=== PATIENT | female | born 1955 | race Caucasian/White ===

== ENCOUNTER 2017-11-16 07:19 | Observation (INO) ==
[2017-11-16] MEDS ORDERED: Sod Chloride 0.9% Inj 1,000 ML IV.CONT SCH ×2 (07:45→09:45)
--- NOTE | 2017-11-16 07:47 | ED ---
[facility] General Chief Complaint: Dizziness Stated Complaint: Dizzy since 5am Time Seen by Provider: 11/16/17 07:33 Source: patient History of Present Illness [facility] Narrative: Patient is a 62-year-old female with no past medical history, presents to the ER for evaluation of chest pain and dizzyness. Patient reports that since yesterday, she has been having chest pain. Patient reports that her chest pain feels like tightness to her chest. Patient reports that she has never had chest pain in the past. Patient reports that nothing makes his chest pain better or worse, denies any shortness of breath, denies any nausea or vomiting or chest pain. Patient reports that pain has been constant since yesterday. Patient reports that this morning at 5 AM, she got up to use the bathroom. Patient reports that she began to have pain to the right side of her neck and put some Orika gel on it and went back to bed. Reports that she went to lay on her left side and felt dizzy, patient then laid on her right side and had resolution of symptoms. Patient reports that every time she laid in the left side, she would feel sick. Patient got to the point where she had to get up and use the bathroom to make her feel better. Patient reports that the dizziness resolves when she sits up, reports that it is worse when she lays down and lays on her left side. Patient with no history of vertigo in the past. Reports that her right ear has been bothering her since yesterday. Patient with no fever or chills, reports nausea with vomiting with her dizziness. Patient with no other complaints.. complaint: dizziness Onset (ago): hour(s) Time: 05:00 Timing: sudden onset Description: "room spinning" History of similar episodes: No History of trauma: No Severity: moderate Relieving factors: remaining still Exacerbating factors: movement Associated symptoms: chest pain, nausea and vomiting Related Data Home Medications Medication Instructions Recorded Confirmed No Known Home Medications 11/16/17 11/16/17 Allergies Allergy/AdvReac Type Severity Reaction Status Date / Time Antihistamines - Piperazine Allergy Itching, Verified 11/16/17 08:05 Generalized Review of Systems ROS Unobtainable All other systems reviewed negative except as stated in [facility] Medical History Medical History History of hysterectomy (Acute) Pulmonary embolism (Acute) Social History Social History Substance History: No History of Abuse Second Hand Smoke Exposure: No Smoking Status: Former smoker Tobacco Type: Cigarettes How Often Do You Have a Drink Containing Alcohol: 4 or more times a week Recent Travel in [facility] within the Last 8 Weeks: No Recent Out of Country Travel within the Last 8 Weeks: No Immunization History Tetanus Immunization: >5 Years Hx Influenza Vaccine This Season: No Exam Narrative Exam Narrative: GENERAL: Mild distress SKIN: Focused skin assessment warm/dry. HEAD: Atraumatic. Normocephalic. EYES: Pupils equal and round. No scleral icterus. No injection or drainage. Patient with horizontial nystagumus ENT: No nasal bleeding or discharge. Mucous membranes pink and moist. NECK: Trachea midline. No JVD. CARDIOVASCULAR: Regular rate and rhythm. No murmur appreciated. RESPIRATORY: No accessory muscle use. Clear to auscultation. Breath sounds equal bilaterally. GASTROINTESTINAL: Abdomen soft, non-tender, nondistended. Hepatic and splenic margins not palpable. MUSCULOSKELETAL: No obvious deformities. No clubbing. No cyanosis. No edema. NEUROLOGICAL: Awake and alert. No obvious cranial nerve deficits. Motor grossly within normal limits. Normal speech. CN 2- 12 grossly intact with no neurological deficits PSYCHIATRIC: Appropriate mood and affect; insight and judgment normal. Course Initial Documented Vital Signs Temperature 97.7 F 11/16/17 07:22 Pulse Rate 62 11/16/17 07:22 Respiratory Rate 16 11/16/17 07:22 Blood Pressure 148/73 H 11/16/17 07:22 Pulse Oximetry 99 11/16/17 07:22 Last Documented Vital Signs Temperature 97.7 F 11/16/17 07:22 Pulse Rate 66 11/16/17 09:36 Respiratory Rate 16 11/16/17 09:36 Blood Pressure 129/74 11/16/17 09:36 Pulse Oximetry 97 11/16/17 09:36 Medical Decision Making DENIA Attestation DENIA supervised visit: No MDM Narrative Medical decision making narrative: During the course of the patients emergency department visit, the patients history, examination, and differential diagnosis were reviewed with the patient. The patient was placed on a toilet attendant with oximetry and frequent blood pressure monitoring. The patient had an IV access obtained and blood work sent for analysis. The patient was initially provided IVF as well as antivert. Patient's EKG shows sinus bradycardia with ST segment depressions with T-wave inversions concerning for ischemia, patient does not have any prior EKGs to compare, cardiac enzymes were ordered, given her abnormal EKG, patient will need to be admitted to the hospital for chest pain Patient feeling better, plan to admit for chest pain obs patient did have past ekg at [facility] - will request prior EKG to compare to todays's ekg. she did take a full dose asa today case reviewed with Dr. Costa who accepts pt to chest pain unit Differential Diagnosis Differential Diagnosis: Vertigo versus VBI versus ACS, arrhythmia, electrolyte abnormality, bronchitis, pneumonia, PE, pneumothorax Medical Records Medical records reviewed: Yes I reviewed the patient's medical records. Lab Data Lab results reviewed: Yes I reviewed the patient's lab results. Result diagrams: 11/16/17 07:50 11/16/17 07:50 Lab Results 11/16/17 11/16/17 11/16/17 Range/Units 07:50 07:50 07:50 CBC w Diff Auto diff final WBC 7.7 (4.0-11.0) th/mm3 RBC 5.05 (4.00-5.30) mil/mm3 Hgb 15.3 (11.6-15.3) gm/dL Hct 45.1 (35.0-46.0) % MCV 89.3 (80.0-100.0) fL MCH 30.3 (27.0-34.0) pg MCHC 34.0 (32.0-36.0) % RDW 13.2 (11.6-17.2) % Plt Count 259 (150-450) th/mm3 MPV 8.7 (7.0-11.0) fL Neut % (Auto) 76.6 H (16.0-70.0) % Lymph % (Auto) 16.6 (9.0-44.0) % [place] % (Auto) 4.3 (0.0-8.0) % Eos % (Auto) 1.5 (0.0-4.0) % Baso % (Auto) 1.0 (0.0-2.0) % Neut # (Auto) 5.9 (1.8-7.7) th/mm3 Lymph # (Auto) 1.3 (1.0-4.8) th/mm3 [place] # (Auto) 0.3 (0.0-0.9) th/mm3 Eos # (Auto) 0.1 (0.0-0.4) th/mm3 Baso # (Auto) 0.1 (0.0-0.2) th/mm3 WBC Differential . PT 10.0 (9.8-11.6) sec INR 1.0 Ratio Sodium 141 (136-145) meq/L Potassium 4.0 (3.5-5.1) meq/L Chloride 109 H (98-107) meq/L Carbon Dioxide 22.9 (21.0-32.0) meq/L Anion Gap 9 (5-15) meq/L BUN 10 (7-18) mg/dL Creatinine 0.75 (0.50-1.00) mg/dL Estimated GFR 78 L (>89) mL/min Random Glucose 117 H (74-106) mg/dL Calcium 9.3 (8.5-10.1) mg/dL Total Bilirubin 0.4 (0.2-1.0) mg/dL AST 23 (15-37) U/L ALT 50 (10-53) U/L Alkaline Phosphatase 188 H (45-117) U/L Total Creatine Kinase 43 (26-192) U/L Troponin I Less than 0.02 L (0.02-0.05) ng/mL Total Protein 6.6 (6.4-8.2) g/dL Albumin 3.4 (3.4-5.0) g/dL Imaging Data Attestation: I personally reviewed and interpreted this imaging study as follows : Radiologist's impression: ITS Impressions Chest X-Ray 11/16/17 07:42 CONCLUSION: 1. Minimal left lower lung zone atelectasis/scarring. Head CT 11/16/17 07:42 CONCLUSION: 1. No acute intracranial abnormality. ECG Data EKG Prior to Arrival: No Attestation: I personally reviewed and interpreted this ECG as follows: Prior ECG tracings: not available for review Interpretation: : EKG at 0742: Sinus popeye at 54bpm, qt/qtc: 408/393, st seg depression with t wave inversion anterior lateral leads Discharge Plan Discharge Disposition Patient Disposition: 30 Still Patient Discharge Details Discharge Problem: Abnormal ECG, Chest pain, Dizziness Physicians Team ED Provider: Milagros Hull Primary Care Provider: NON STAFF,PROVIDER Rxs /Orders / Referrals /Forms Prescriptions: No Action No Known Home Medications RF: 0 Status ED Status: With Doctor
[2017-11-16 07:59] LABS: Baso # (Auto) 0.1 th/mm3 (0.0-0.2); Eos # (Auto) 0.1 th/mm3 (0.0-0.4); Eos % (Auto) 1.5 % (0.0-4.0); Hematocrit 45.1 % (35.0-46.0); Hemoglobin 15.3 gm/dL (11.6-15.3); Lymph # (Auto) 1.3 th/mm3 (1.0-4.8); Lymph % (Auto) 16.6 % (9.0-44.0); Mean Corpuscular Hemoglobin 30.3 pg (27.0-34.0); Mean Corpuscular Volume 89.3 fL (80.0-100.0); Mean Platelet Volume 8.7 fL (7.0-11.0); Mono # (Auto) 0.3 th/mm3 (0.0-0.9); Mono % (Auto) 4.3 % (0.0-8.0); Neut # (Auto) 5.9 th/mm3 (1.8-7.7); Neut % (Auto) 76.6 % (16.0-70.0); Platelet Count 259 th/mm3 (150-450); Red Blood Count 5.05 mil/mm3 (4.00-5.30); Red Cell Distribution Width 13.2 % (11.6-17.2); White Blood Count 7.7 th/mm3 (4.0-11.0)
--- NOTE | 2017-11-16 08:09 | XR ---
EXAM DATE: 11/16/2017 8:07 AM EDT AGE/SEX: 62 years / Female INDICATIONS: Chest discomfort, dizziness. CLINICAL DATA: This is the patient's initial encounter. Patient reports that signs and symptoms have been present for 2 days and indicates a pain score of 2/10. MEDICAL/SURGICAL HISTORY: None. Hysterectomy. COMPARISON: No prior exams available for comparison. FINDINGS: Minimal linear parenchymal opacities in the left lower lung zone. The cardiomediastinal contours are unremarkable. Osseous structures are intact. CONCLUSION: 1. Minimal left lower lung zone atelectasis/scarring. Electronically signed by: Patrice Rodriguez MD 11/16/2017 8:08 AM EDT
[2017-11-16 08:10] LABS: Chloride 109 meq/L (98-107); Sodium 141 meq/L (136-145)
[2017-11-16 08:13] LABS: Calcium 9.3 mg/dL (8.5-10.1)
[2017-11-16 08:14] LABS: Albumin 3.4 g/dL (3.4-5.0); Anion Gap 9 meq/L (5-15); Blood Urea Nitrogen 10 mg/dL (7-18); Carbon Dioxide 22.9 meq/L (21.0-32.0); Glucose,Random 117 mg/dL (74-106)
[2017-11-16 08:17] LABS: Alanine Aminotransferase 50 U/L (10-53); Aspartate Aminotransferase 23 U/L (15-37); Glomerular Filtration Rate 78 mL/min (>89)
[2017-11-16 08:18] LABS: Total Protein 6.6 g/dL (6.4-8.2)
[2017-11-16 08:19] LABS: Alkaline Phosphatase 188 U/L (45-117)
[2017-11-16 08:26] LABS: Creatine Kinase 43 U/L (26-192)
[2017-11-16] MEDS ORDERED: Aspirin 325 MG Tablet PO ONE (08:44)
[2017-11-16 11:37] LABS: Creatine Kinase 34 U/L (26-192)
[2017-11-16] MEDS ORDERED: Temazepam 15 MG Capsule PO PRN (11:41)
[2017-11-16] MEDS ORDERED: Morphine Inj 4 MG/ML Vial IV.PUSH PRN (11:41)
[2017-11-16] MEDS ORDERED: Acetaminophen 500 MG Tablet PO PRN (11:41)
--- NOTE | 2017-11-16 12:53 | P.HP ---
History of Present Illness Primary Care Physician: PROVIDER NON STAFF Chief Complaint: Dizziness History of Present Illness: 62-year-old female with only history of pulmonary emboli due to infection who is no longer on anticoagulation presents emergency department because of the acute onset of dizziness. Patient states that she is in normal state of health until this morning when she got up and went to the bathroom and when she returned to bed she developed some dizziness. She normally sleeps on her left side but she cannot lay on the left side without having significant dizziness. She was okay if she was on her back or on her right side but when she laid on her left side she got severely dizzy and had an episode of nausea vomiting. Because that would not resolve she came to emergency department for evaluation. Incidentally the patient notified the ER physician that she had been experiencing intermittent chest tightness and she has been under increased stress due to her mother and sister recently . Patient states that she has had a constant chest tightness 5/10 on a pain scale over the last 2 days without any resolution. Patient denies any shortness of breath, difficulty breathing, diaphoresis, radiation to the neck, back, shoulder, arm. Patient had EKG performed which looked abnormal with inverted T waves in leads V V2, V3 , V4, V5, V6. Because reasons is recommended by the ER physician the patient be observed in the hospital for further evaluation and management. - Diagnosis (1) Chest pain (2) Dizziness (3) Abnormal ECG Review of Systems All other systems reviewed negative except as stated in HPI Cardiovascular: Reports chest pain Comments: Dizziness PMFSH - History History Provided By: Patient - Medical History Medical History: Medical History (Last Updated 11/16/17 @ 12:47 by LAYNE Jain) History of hysterectomy Pulmonary embolism - Family History Family History: Family History (Last Updated 11/16/17 @ 12:25 by LAYNE Jain) Mother Coronary artery disease Sister Lung cancer - Tobacco History Second Hand Smoke Exposure: No Tobacco Use In Past 30 Days: No Smoking Status: Former smoker Tobacco Type: Cigarettes - Alcohol History How Often Do You Have a Drink Containing Alcohol: 4 or more times a week - Substance Use History Substance History: No History of Abuse - Travel History Recent Travel in the [place] Within the Last 8 Weeks: No Recent Travel Out of the Country Within the Last 8 Weeks: No - Immunization History Tetanus Immunization: >5 Years Hx Influenza Vaccine This Season: No Medications and Allergies Active Medications: Active Medications Acetaminophen (Tylenol) 500 mg PO Q4H PRN PRN Reason: HEADACHE Hydrocodone Bitart/Acetaminophen ([place] 7.5/325) 1 tab PO Q4H PRN PRN Reason: PAIN SCALE 1 TO 7 Sodium Chloride (Ns Inj) 1,000 mls @ 100 mls/hr IV.CONT .Q10H REDD Morphine Sulfate (Morphine Inj) 2 mg IV.PUSH Q4H PRN PRN Reason: PAIN SCALE 8 TO 10 Nitroglycerin (Nitrostat Sl) 0.4 mg SL Q5M PRN PRN Reason: CHEST PAIN Ondansetron HCl (Zofran Odt) 4 mg PO Q6H PRN PRN Reason: NAUSEA OR VOMITING Sodium Chloride (Ns Flush) 2 ml IV.FLUSH BID REDD Sodium Chloride (Ns Flush) 2 ml IV.FLUSH PRN PRN PRN Reason: FLUSH AFTER USING IV ACCESS Temazepam (Restoril) 15 mg PO HS PRN PRN Reason: INSOMNIA Allergies Allergy/AdvReac Type Severity Reaction Status Date / Time Antihistamines - Piperazine Allergy Itching, Verified 11/16/17 08:05 Generalized Home Medications Medication Instructions Recorded Confirmed Type No Known Home Medications 11/16/17 11/16/17 History Exam Vital signs: Vital Signs 11/16/17 07:22 11/16/17 07:36 11/16/17 07:41 Temperature 97.7 F Pulse Rate 62 65 65 Respiratory Rate 16 16 Blood Pressure 148/73 H 158/82 H Pulse Oximetry 99 98 11/16/17 07:55 11/16/17 09:36 Temperature Pulse Rate 55 L 66 Respiratory Rate 16 Blood Pressure 129/74 Pulse Oximetry 97 Intake & Output 11/15/17 11/16/17 11/16/17 18:59 06:59 18:59 Weight 77 kg Narrative: GENERAL: Well-developed, well-nourished, in no acute distress. alert and orientated HEENT: Head is normocephalic without any lesions or masses noted. Facial features are symmetric. Eyes: Pupils equal round reactive to light. Extraocular muscles are intact. Conjunctivae were clear. Oropharyngeal: Pharynx without any erythema edema. Tongue is midline without deviation. Buccal mucosa is moist without any masses or lesions NECK: Supple without any masses. Trachea midline no deviation. No JVD, no bruits are appreciated CARDIAC: Regular rhythm, regular rate. S1/S2 are heard. No murmurs gallops or rubs. LUNGS: Clear to auscultation bilaterally. No wheeze, rhonchi or rales. No use of accessory muscles on inspiration or expiration. ABDOMEN: Soft, nontender. Nondistended. Bowel sounds heard in all 4 quadrants. No organomegaly or masses. Negative rebound, negative guarding EXTREMITIES: No edema, pulses are equal bilaterally. No cyanosis or clubbing NEUROLOGY: Mood and affect appear appropriate. Cranial nerves II through XII grossly intact. Muscle strength 5/5 in upper and lower extremities bilaterally. Deep tendon reflexes are 2+ in upper and lower extremities bilaterally. Neck movement does not elicit any dizziness. When patient lays on her back or right side she does not have any dizziness. When patient lays on left side she gets sudden onset of dizziness. Results - Labs CBC & Chem 7: 11/16/17 07:50 11/16/17 07:50 Labs: Laboratory Results - last 24 hr 11/16/17 11/16/17 11/16/17 07:50 07:50 07:50 CBC w Diff Auto diff final WBC 7.7 RBC 5.05 Hgb 15.3 Hct 45.1 MCV 89.3 MCH 30.3 MCHC 34.0 RDW 13.2 Plt Count 259 MPV 8.7 Neut % (Auto) 76.6 H Lymph % (Auto) 16.6 [place] % (Auto) 4.3 Eos % (Auto) 1.5 Baso % (Auto) 1.0 Neut # (Auto) 5.9 Lymph # (Auto) 1.3 [place] # (Auto) 0.3 Eos # (Auto) 0.1 Baso # (Auto) 0.1 WBC Differential . PT 10.0 INR 1.0 Sodium 141 Potassium 4.0 Chloride 109 H Carbon Dioxide 22.9 Anion Gap 9 BUN 10 Creatinine 0.75 Estimated GFR 78 L Random Glucose 117 H Calcium 9.3 Total Bilirubin 0.4 AST 23 ALT 50 Alkaline Phosphatase 188 H Total Creatine Kinase 43 Troponin I Less than 0.02 L Total Protein 6.6 Albumin 3.4 11/16/17 11:05 CBC w Diff WBC RBC Hgb Hct MCV MCH MCHC RDW Plt Count MPV Neut % (Auto) Lymph % (Auto) [place] % (Auto) Eos % (Auto) Baso % (Auto) Neut # (Auto) Lymph # (Auto) [place] # (Auto) Eos # (Auto) Baso # (Auto) WBC Differential PT INR Sodium Potassium Chloride Carbon Dioxide Anion Gap BUN Creatinine Estimated GFR Random Glucose Calcium Total Bilirubin AST ALT Alkaline Phosphatase Total Creatine Kinase 34 Troponin I Less than 0.02 L Total Protein Albumin - Imaging Impressions Chest X-Ray 11/16/17 07:42 CONCLUSION: 1. Minimal left lower lung zone atelectasis/scarring. Head CT 11/16/17 07:42 CONCLUSION: 1. No acute intracranial abnormality. Caprini VTE Risk Assessment Caprini VTE Risk Assessment: Moderate/High Risk (score >= 2) Caprini Risk Assessment Model: Point Value = 1 Point Value = 2 Point Value = 3 Point Value = 5 Age 41-60 Minor surgery BMI > 25 kg/m2 Swollen legs Varicose veins or History of unexplained or recurrent spontaneous Oral contraceptives or hormone replacement Sepsis (< 1 month) Serious lung disease, including pneumonia (< 1 month) Abnormal pulmonary function Acute myocardial infarction Congestive heart failure (< 1 month) History of inflammatory bowel disease Medical patient at bed rest Age 61-74 Arthroscopic surgery Major open surgery (> 45 min) Laparoscopic surgery (> 45 min) Malignancy Confined to bed (> 72 hours) Immobilizing plaster cast Central venous access Age >= 75 History of VTE Family history of VTE Factor V Leiden Prothrombin [id number] Lupus anticoagulant Anticardiolipin antibodies Elevated serum homocysteine Heparin-induced thrombocytopenia Other congenital or acquired thrombophilia Stroke (< 1 month) Elective arthroplasty Hip, pelvis, or leg fracture Acute spinal cord injury (< 1 month) Prophylaxis Regimen: Total Risk Factor Score Risk Level Prophylaxis Regimen 0-1 Low Early ambulation 2 Moderate Order ONE of the following: *Sequential Compression Device (SCD) *Heparin 5000 units SQ BID 3-4 Higher Order ONE of the following medications: *Heparin 5000 units SQ TID *Enoxaparin/Lovenox 40 mg SQ daily (WT < 150 kg, CrCl > 30 mL/min) *Enoxaparin/Lovenox 30 mg SQ daily (WT < 150 kg, CrCl > 10-29 mL/min) *Enoxaparin/Lovenox 30 mg SQ BID (WT < 150 kg, CrCl > 30 mL/min) AND/OR *Sequential Compression Device (SCD) 5 or more Highest Order ONE of the following medications: *Heparin 5000 units SQ TID (Preferred with Epidurals) *Enoxaparin/Lovenox 40 mg SQ daily (WT < 150 kg, CrCl > 30 mL/min) *Enoxaparin/Lovenox 30 mg SQ daily (WT < 150 kg, CrCl > 10-29 mL/min) *Enoxaparin/Lovenox 30 mg SQ BID (WT < 150 kg, CrCl > 30 mL/min) AND *Sequential Compression Device (SCD) Assessment and Plan - Assessment (1) Chest pain Code(s): R07.9 - Chest pain, unspecified Status: Acute Plan: -Patient with increased risk factors include age, postmenopausal without any exogenous hormones, family history of heart disease, history of tobacco use -Patient has been ruled out for acute coronary event with serial cardiac enzymes are negative -Serial EKGs were performed -Myocardial perfusion study was performed and indicated no signs of ischemia, low risk -Continue aspirin, nitroglycerin as needed, [place] and morphine for pain -Continue monitor telemetry -Patient does have history of multiple pulmonary emboli, d-dimer was performed which was normal (2) Dizziness Code(s): R42 - Dizziness and giddiness Status: Acute Plan: -Appears to be positional on the left side only likely vertigo -CT scan of the brain did not indicate any acute abnormality -Continue meclizine 25 mg 3 times daily (3) Abnormal ECG Code(s): R94.31 - Abnormal electrocardiogram [ECG] [EKG] Status: Acute - Plan DVT prevention -Sequential compression devices Discharge Planning: Discharge home in stable condition Activity: Ad raoul. Diet: Healthy heart diet Medication per medication reconciliation Follow-up with primary medical doctor in 1 week (1) Chest pain Qualifiers: Chest pain type: unspecified Qualified Code(s): R07.9 - Chest pain, unspecified
--- NOTE | 2017-11-16 14:30 | ECG ---
Date Performed: 11/16/2017 Time Performed: 12:38:35 PTAGE: 62 years EKG: SINUS BRADYCARDIA LOW QRS VOLTAGE IN PRECORDIAL LEADS NONSPECIFIC ST & T-WAVE ABNORMALITY B ORDERLINE ECG No significant change from prior electrocardiogram. PREVIOUS TRACING : 11/16/2017 07.42 DOCTOR: Blake Vincent Interpretating Date/Time 11/16/2017 14:29:05
[2017-11-16 15:12] LABS: Creatine Kinase 31 U/L (26-192)
[2017-11-16] MEDS ORDERED: Regadenoson Inj 0.4 MG/5 ML Syringe IV.PUSH ONE (15:23)
--- NOTE | 2017-11-16 16:03 | NM ---
EXAM DATE: 11/16/2017 4:00 PM EDT AGE/SEX: 62 years / Female INDICATIONS:Angina. . Mid chest pain with dizziness for one day. CLINICAL DATA: This is the patient's initial encounter. Patient reports that signs and symptoms have been present for 1 day and indicates a pain score of 4/10. MEDICAL/SURGICAL HISTORY: Non-responsive. Hysterectomy. COMPARISON: No prior exams available for comparison. No external comparison. DOSE: 8.7 mCi Tc 99m Myoview at rest 26.2 mCi [id number] at stress 0.4 mg Lexiscan STRESS SYMPTOMS: Short of breath. EJECTION FRACTION: >70 % TECHNIQUE: The patient underwent pharmacologic stress with infusion of prescribed dose. Continuous ECG tracing was monitored during stress. Gated SPECT imaging was performed after stress and conventi onal SPECT imaging was performed at rest. The examination was performed on a SPECT/CT scanner, both attenuation and non-corrected datasets were reviewed. FINDINGS: Distribution: The maximum perfused segment at stress is in the anterior wall. Perfusion Study: The pattern of perfusion at stress is within normal limits. Gated Study: There are intact wall motion and wall thickening without hypokinetic or dyskinetic segm ents. The ejection fraction is calculated at >70%. RISK CATEGORY: Low (<1% Annual Motality Rate) CONCLUSION: 1. Unremarkable myocardial perfusion study. Electronically signed by: Teddy Guerrero MD 11/16/2017 4:01 PM EDT
--- NOTE | 2017-11-16 17:56 | ECG ---
Date Performed: 11/16/2017 Time Performed: 14:26:41 PTAGE: 62 years EKG: SINUS BRADYCARDIA LOW QRS VOLTAGE IN PRECORDIAL LEADS Nonspecific T wave changes ABNORMAL E CG No significant change from prior electrocardiogram. PREVIOUS TRACING : 11/16/2017 12.38 DOCTOR: Blake Vincent Interpretating Date/Time 11/16/2017 17:54:09
--- NOTE | 2017-11-16 17:57 | ECG ---
Date Performed: 11/16/2017 Time Performed: 07:42:00 PTAGE: 62 years EKG: SINUS BRADYCARDIA LOW QRS VOLTAGE IN PRECORDIAL LEADS ST DEVIATION AND MODERATE T-WAVE ABNO RMALITY, CONSIDER ANTERIOR ISCHEMIA ABNORMAL ECG NO PREVIOUS TRACING DOCTOR: Nichole Hayes Interpretating Date/Time 11/16/2017 17:55:20
--- NOTE | 2017-11-27 17:45 | TR ---
Date Performed: 11/16/2017 Time Performed: 15:05:57 DOCTOR: Rudy Jacobson DRUG LIST: CLINICAL HISTORY: ANGINA REASON FOR TEST: Angina REASON FOR ENDING: OBSERVATION: CONCLUSION: COMMENTS: Lexiscan stress test was performed under standard four minute protocol. Radionuclide was injected one minute prior to ending the test. No electrocardiographic abormalities were present t o suggest ischemia. Nuclear imaging and interpretation are pending.
== END 2017-11-16 17:57 | disposition home or self-care (01) ==
LOC: PH3 07:19 → PHED 07:19 → PHEDA 07:19 → PH3 10:22
PROVIDERS: ADMIT Internal Medicine; ATTEND Internal Medicine